=== PATIENT | male | born 1980 | race Caucasian/White ===

== ENCOUNTER 2017-05-30 10:37 | Emergency (ER) | payer OTHER ==
[~2017-05-30] VITALS: Ht 182.9 cm; Wt 92.9 kg
[2017-05-30 10:54] VITALS: TEMP 36.7; Ht 182.9 cm; Wt 92.9 kg
[2017-05-30] MEDS ORDERED: OXYCODONE/ACETAMINOPHEN 5-325 TAB PO ONE (11:15)
[2017-05-30] MEDS ORDERED: IBUP-1427 PO (11:26)
[2017-05-30] MEDS ORDERED: BUPR-83 PO (11:26)
--- NOTE | 2017-05-30 11:30 | DIAGNOSTIC IMAGING REPORT ---
RIGHT KNEE 3 VIEWS CLINICAL HISTORY: Right knee pain following injury. COMPARISON: None FINDINGS: Alignment of the right knee is anatomic. No acute fracture is identified. No joint effusion is identified. There is possible soft tissue swelling overlying the medial metaphysis of the right tibia. IMPRESSION: 1. No acute fracture or joint effusion of the right knee. 2. Possible soft tissue swelling projecting medial to the medial metaphysis of the proximal right tibia. Electronically signed by: Italo Rivera M.D. 05/30/2017 11:28 AM Dictated Date/Time: 05/30/2017 11:27 AM
[2017-05-30] MEDS ORDERED: OXYC-57 PO (11:56)
[2017-05-30 12:04] VITALS: BP 127/89; PULSE 84; O2SAT 99
--- NOTE | 2017-05-30 20:24 | EMERGENCY ROOM VISIT NOTE ---
ED Visit Note First contact with patient: 11:02 Chief Complaint: Right knee pain. History of Present Illness: Mr. Galarza is a 36-year-old white male who is brought into the ED via wheelchair complaining of right knee pain. Patient reports he was working on a tractor yesterday approximately 24 hours ago. He had placed a rui under the tractor to lift it up to remove the tire. He also cribbed the vehicle. He put his leg onto the vehicle and attempt to remove the tire and the rui gave out and the tractor fell onto the cramping and broke a cramping and then eventually onto his right knee. Since that time he has been having severe anterior knee pain and he has developed bruising and swelling sinternce the event. Currently he describes his pain as accommodation of sharp and throbbing and it is located over the entire knee and the superior aspect of the tibia. He rates his discomfort 8/ 10. The pain is nonradiating. Pain worsens with flexion beyond 90, palpation and ambulation. He has not identified any alleviating factors related to the pain. He has been taking multiple doses of ibuprofen since the event without relief of his discomfort. He denies any associated symptoms including hip pain , thigh pain, lower leg pain, foot pain, leg weakness/numbness/tingling. Review of Systems: As noted above in history of present illness. 5 body systems were reviewed and found to be negative as noted above. Past Medical History: Asthma, bronchitis, left lower extremity DVT, status post hernia repair. Current Medications: Wellbutrin, Motrin. Allergies to Medications: Sulfa, Vicodin and morphine. Social History: Patient is not employed; he lives with his and feels safe in his home environment; he admits to tobacco use and denies alcohol use. Physical Examination: Vital Signs: Date Time Temp Pulse Resp B/P (MAP) Pulse Ox O2 Delivery O2 Flow Rate FiO2 05/30/17 12:04 84 16 127/89 99 05/30/17 10:54 36.7 86 18 138/87 99 Room Air GENERAL: 36-year-old male in mild to moderate distress due to pain, nontoxic- appearing, afebrile and hemodynamically stable. NEUROLOGICAL: Awake, alert and oriented to person, place and time. Answering questions appropriately and following commands. Good hand eye coordination. No focal motor or sensory deficits. SKIN: Warm, dry and pink. No open soft tissue injuries. Large contusion over the anterior aspect of the right lower thigh, knee and proximal lower leg. RIGHT LOWER EXTREMITY: No gross bony deformity. No shortening or malrotation. No tenderness in the hip, proximal thigh, distal lower leg, ankle or foot. Pain primarily over the anterior aspect of the distal thigh extending to the proximal lower leg with ecchymosis and a hematoma over the medial proximal tibia. No joint line tenderness. No laxity of the collateral cruciate ligaments. Negative ballottement test. Negative patellar apprehension test. Decreased range of motion to approximately 40 of flexion of the knee. He was able to tolerate full extension and hyperextension. Negative bounce test. No tenderness over the tibia or fibula. Throughout the lower leg and foot the skin was warm and pink and capillary refill is brisk. He was able to distinguish light sensations through all dermatomes of the lower leg and foot. Full range of motion in plantar flexion and dorsiflexion of the ankle against resistance. ED Course: Patient is assessed as noted above. Patient's medication list was reviewed. Patient was given ice and one Percocet 3/25 mg tablet by mouth for pain. Right Knee X-Rays: Was read by myself and the radiologist and shows no acute fractures, dislocations or joint effusions. Soft tissue swelling noted over the medial metaphysis of the right tibia consistent with his hematoma. Patient's knee was placed in a knee immobilizer and he was placed on nonweightbearing crutches. Patient was educated about today's findings and instructed on his treatment plan ; he verbalized understanding and agreement with this plan. Clinical Impression: Right knee contusion. Decision-Making: Initially my differential diagnosis I considered fracture, dislocation, contusion, hematoma, joint effusion, ligamentous sprain and other causes. Disposition: Patient discharged home in stable condition; prior to departure he was reassessed and subjectively reported he was feeling much better and rated his discomfort 5/10. Plan: Comfort measures were discussed with the patient including rest, ice, elevation , knee immobilizer and crutch use and a sliding pain medication scale of ibuprofen, acetaminophen and Percocet. Patient was given appropriate narcotic precautions and his name was checked on state database and no red flags were identified. Patient was encouraged to follow-up with orthopedic designer if no better in 7 -10 days. Patient was encouraged return ED for worsening/uncontrolled pain, uncontrolled swelling, knee/lower leg weakness/numbness/tingling or any new/concerning symptoms.
== END 2017-05-30 12:05 | disposition home or self-care (01) ==
LOC: C.EDB 10:40 → C.EDD 12:05
DX: S80.01XA Contusion of right knee, initial encounter (principal); W20.8XXA Other cause of strike by thrown, projected or falling object, initial encounter; S70.11XA Contusion of right thigh, initial encounter; S80.11XA Contusion of right lower leg, initial encounter; J45.909 Unspecified asthma, uncomplicated; F17.200 Nicotine dependence, unspecified, uncomplicated; Z86.718 Personal history of other venous thrombosis and embolism